=== PATIENT | female | born 1950 | race Caucasian/White ===

== ENCOUNTER → 2017-07-11 09:57 | Outpatient (CLI) | payer MEDICARE, SELFPAY ==
[2017-07-11 13:21] LABS: Urine Sodium 56 mmol/L (Not Establ.)
[2017-07-11 13:31] LABS: Anion Gap 8 (5-15); BUN 22 mg/dL (7-18); BUN/Creat Ratio 29.1 RATIO (10-20); Calcium,Total 9.1 mg/dL (8.5-10.1); Chloride 96 mmol/L (98-107); Creatinine, Serum 0.76 mg/dL (0.55-1.02); EST Glomerular Filtration Rate 81 mL/min (>60); Est Glom Filt Rate - Afr Amer 98 mL/min (>60); Glucose 96 mg/dL (74-106); Sodium Level 133 mmol/L (136-145)
[2017-07-11 13:40] LABS: Osmolality, Serum 282 mOsm/KG (280-301); Osmolality, Urine 401 mOsm/KG
== END ==
PROVIDERS: Family Provider Family Medicine; PCP Family Medicine; Visit Provider Internal Medicine Nephrology
DX: E87.1 Hypo-osmolality and hyponatremia (principal)
CPT/HCPCS: 36415; 80048; 83930; 83935; 84300

== ENCOUNTER → 2017-08-06 15:18 | Outpatient (CLI) | payer MEDICARE, OTHER, SELFPAY ==
--- NOTE | 2017-08-06 15:19 | RAD_ITS ---
STUDY: X-RAY - LUMBAR SPINE REASON FOR EXAM: Female, 67 years old. Low back pain TECHNIQUE: 5 view(s) of the lumbar spine were obtained with flexion and extension views. COMPARISON: None FINDINGS: Normal lumbar lordosis. There is no substantial scoliosis. There is a normal alignment of the vertebrae. Normal flexion and extension with no subluxations. Normal vertebral bodies and endplates. Normal disc space heights. There is no demonstrated fracture. The soft tissue structures are unremarkable. RAD/L/S Spine Min 4 Views IMPRESSION: Normal x-ray examination of the lumbar spine. Electronically Signed: Chandana Stroud MD at 20:26 EDT , Service support ,
== END ==
PROVIDERS: Family Provider Family Medicine; PCP Family Medicine; Visit Provider Orthopaedic Surgery
DX: M54.5 Low back pain (principal)
CPT/HCPCS: 72110

== ENCOUNTER 2017-09-11 08:03 | Inpatient (IN) | payer MEDICARE, OTHER, SELFPAY ==
[2017-08-28 10:20] VITALS: BP 114/73; PULSE 76; RESP 17; TEMP 36.3; O2SAT 97; BMI 26.7
--- NOTE | 2017-08-28 10:40 | SDCEKG_ITS ---
Test Reason : Blood Pressure : / mmHG Vent. Rate : 073 BPM Atrial Rate : 073 BPM P-R Int : 140 ms QRS Dur : 078 ms QT Int : 386 ms P-R-T Axes : 021 002 017 degrees QTc Int : 425 ms Normal sinus rhythm Normal ECG Confirmed by OMAYRA XIONG, EDD ([id number]), content editor SHON RUIZ ([id number] on 08/30/2017 3:06:12 PM Referred By: Kamran Pete Confirmed By:EDD CUTLER MD
[2017-08-28 11:10] LABS: Absolute Lymphocyte Count 1.57 X10^3/ul (0.83-4.51); Absolute Neutrophil Count 3.3 X10^3/uL (2.0-7.7); Basophil# 0.01 X10^3/uL; Basophil% 0.2 % (0-1); Eosinophil# 0.11 X10^3/uL; Hematocrit 36.4 % (37-47); Hemoglobin 11.9 g/dl (12.0-15.0); Lymphocyte # 1.57 X10^3/ul (4.0); Lymphocyte % 27.9 % (19-41); Mean Corp Hgb Conc 32.7 g/gl (32-36); Mean Corpuscular Hgb 30.1 pg (27.0-32.0); Mean Corpuscular Volume 91.9 fL (81-99); Mean Platelet Vol. 8.8 fl (6.2-12.0); Monocyte# 0.59 X10^3/uL; Monocyte% 10.5 % (0-10); Neutrophil # 3.33 X10^3/uL (2.7-7.7); Neutrophil % 59.2 % (47-70); POSITIVE COUNT NO; POSITIVE DIFFERENTIAL NO; POSITIVE MORPHOLOGY NO; Platelet Count 288 K/mm3 (150-450); RBC Distribution Width CV 12.7 % (11.6-14.6); RBC Distribution Width SD 42.7 fl (35.1-43.9); Red Blood Count 3.96 M/mm3 (4.2-5.4); White Blood Count 5.6 K/mm3 (4.4-11.0)
[2017-08-28 11:20] LABS: Anion Gap 4 (5-15); BUN 21 mg/dL (7-18); BUN/Creat Ratio 23.5 RATIO (10-20); Calcium,Total 9.2 mg/dL (8.5-10.1); Chloride 100 mmol/L (98-107); Creatinine, Serum 0.89 mg/dL (0.55-1.02); EST Glomerular Filtration Rate 67 mL/min (>60); Est Glom Filt Rate - Afr Amer 81 mL/min (>60); Estimated Creatinine Clearance 46.92 ml/min; Glucose 88 mg/dL (74-106); Potassium 3.7 mmol/L (3.5-5.1); Sodium Level 137 mmol/L (136-145)
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
[2017-09-11] VITALS (12 sets, daily range): BP systolic 92–147; BP diastolic 56–106; PULSE 65–87; RESP 14–20; TEMP 36.3–37.3; O2SAT 95–100; BMI 26.7
[2017-09-11] MEDS: oxyCODONE HCl Cr 10 MG Tablet PO (08:40)
[2017-09-11] MEDS: Acetaminophen 500 MG Tablet 1000 MG PO ×3 (08:40→21:36)
--- NOTE | 2017-09-11 08:53 | PCM.OPRPT ---
Report of Operation Date of Procedure: 09/11/17 Pre-Operative Diagnosis: Right hip primary osteoarthritis Post-Operative Diagnosis: Right hip primary osteoarthritis Surgery/Procedure Performed:: Right direct anterior total hip replacement Description of Surgical Findings:: Stable hip with equal leg lengths supervisory civil engineer: Marlene Snowden Type of Anesthesia:: Spinal Anesthesiologist: Juan F Marquez Special Medications: 2 g Ancef, 1 g TXA at incision, 1 g TXA closure, 10 mg Decadron, joint cocktail (5 mg Duramorph, 30 mL of 0.5% Ropivicaine, 1000 units of epinephrine, 30 mg of Toradol) Specimen's removed: bony cuts Estimated Blood Loss (mL): 150 Fluids Replaced: 1100 ml Description of Procedure: Components used: 1. Accolade 2 Hinton femoral stem size 4 127? 2. Hinton trident acetabular shell size 50 mm 3. Michelle X3 polyethylene D 4. Michelle Biolox delta 36mm, -5mm femoral head Brief history operative indications: 67 yo f who failed conservative measures for their hip osteoarthritis. X-rays were consistent with osteoarthritis including joint space narrowing, osteophyte formation and subchondral cysts. Total hip replacement was discussed with the patient with risks and benefits including but not limited to blood loss, DVTs, PEs, neurovascular damage, dislocation, general risks of anesthesia including loss of life. Patient demonstrated an understanding medical clearance is obtained the patient was consented for surgery. Procedure: On the date of procedure the patient's R hip was marked in the preoperative area. Patient was then taken back to the operating room where anesthesia assumed control of the C-spine and airway and administered anesthetic. Patient was transferred to the operating table and placed in the supine position. The hips were placed at the break of the bed and a sacral bump was placed. The R lower extremity was then prepped out in a sterile fashion using chlorhexidine while the surgeon scrubbed. The PA was vital in the positioning of the patient. Upon reentering the room the R lower extremity was draped in the standard orthopedic fashion and the incision was marked. A timeout was called and everyone agreed upon the side, the site, the procedure be performed, antibody given, and patient's identity. At this time incision was made through skin, subcutaneous tissue, and fat down to fascia. The fascia was then incised and the TFL was retracted laterally. A retractor was placed on the lateral border of the femoral neck. Attention was directed to the inferior portion of the approach and all crossing vessels were identified and appropriately coagulated. A retractor was then placed on the medial portion of the femoral neck. The anterior capsule was then cleared of all soft tissue and then H shaped capsulotomy was made. The retractors were then placed inside the capsule. The femoral neck was identified and a cleanup cut was made. At this time a power corkscrew was used to remove the femoral head. Attention was then turned toward the acetabulum where the soft tissues were appropriately retracted and the acetabulum was sequentially reamed to 49 mm. A 50 mm cup was then selected and impacted into place. Acetabular liner was impacted into place and locking mechanism was verified. The position of the acetabular cup was then verified under live fluoroscopy. Attention was then turned to the femur. Soft tissue releases on the medial and lateral femoral neck were appropriately done, the leg was externally rotated and lateralized. A Sumner retractor was placed medially and proximally to the greater trochanter this allowed appropriate visualization and exposure of the femoral canal. Rongeour was then used to remove excess lateral bone. A canal finder and entry broach were used to open the proximal canal. Once we verified we were down the femoral canal we subsequently broached up to a size 4 femur. The appropriate neck was placed in the previously selected head was trialed with a -5 mm neck. Traction was pulled and the hip was reduced with internal rotation. Once it was appropriately reduced and stability was checked. There was minimal shuck, equal leg lengths and appropriate stability with hyperextension and external rotation as well as with 90? flexion and internal rotation. Fluoroscopy was then also used to verify the position of the components and leg lengths using the contralateral side for comparison. The trial components were then dislocated the proximal femur was again exposed and the components were removed from the wound. The final components were verified and opened. The wound was copiously irrigated out with normal saline. The acetabulum was checked for any residual debris. The final components were placed and impacted. Traction and internal rotation were again used to reduce the hip. After adequate reduction the hip remained stable with appropriate leg lengths. The final components were once again checked with live fluoroscopy and were found to be satisfactory. The wound was then copiously irrigated with normal saline once more, and hemostasis was obtained. Closure was then done using #1 Vicryl runner to close the fascia. A 2-0 vicryl interuppted sutures were used to close the subcutaneous skin. A 3-0 Monocryl and Steri-Strips were used for final skin closure. A Silverlon dressing was placed. Patient was awakened by anesthesia and transferred to the [facility]. Patient was then transferred to the PACU for recovery. Postoperative plan: Patient will get 24 hours postop antibiotics. Patient will get in-house physical therapy and will be weight-bear as tolerated. Patient will follow up in office in 2 weeks for a wound check and x-rays. Grafts/Implants Used: Michelle Accolade 2 - Complications none - Admit VTE Documentation VTE Present on Admission: No VTE Mechan Device Prophylaxis: SCD's, Thigh High CHATA Hose VTE Pharm Prophylaxis ordered?: Yes
[2017-09-11] MEDS: Lactated Ringers 1,000 ML 999 ML IV (09:01)
[2017-09-11] MEDS: Cefazolin 2 GM in 0.9% Normal Saline 100 ML IV (09:36)
--- NOTE | 2017-09-11 10:15 | RAD_ITS ---
STUDY: X-RAY - PELVIS AND RIGHT HIP REASON FOR EXAM: Female, 67 years old. Hip replacement TECHNIQUE: 3 C-arm views. 11.2 seconds of fluoroscopy time. COMPARISON: None. FINDINGS: These limited field of view images show grossly satisfactory appearance of right hip arthroplasty. Correlate with procedure note. Electronically Signed: Chandana Stroud MD at 12:42 EDT , Service support , RAD/Hip 1 view with Pelvis
[2017-09-11] MEDS: Scopolamine 1mg/72hr Patch 1 PATCH TD (11:18)
[2017-09-11] MEDS: Lactated Ringers 1,000 ML 125 ML IV ×2 (11:21→16:50)
--- NOTE | 2017-09-11 11:23 | RAD_ITS ---
STUDY: X-RAY - PELVIS AND RIGHT HIP REASON FOR EXAM: Female, 67 years old. Postop hip replacement. TECHNIQUE: Radiological exam, hip, unilateral, with pelvis when performed; 2 or 3 views. COMPARISON: None. FINDINGS: There is a non-specific bowel gas pattern. Normal visualized soft tissue structures. Normal bilateral iliac wings, sacroiliac joints and visualized sacrum. Normal bilateral superior and inferior pubic rami. Normal pubic symphysis. Normal bilateral ischial tuberosities. There is a satisfactory appearance of a right total hip arthroplasty. No evidence for acute complication. RAD/Hip Min 2 Views (Portable) IMPRESSION: There is a satisfactory appearance of a right total hip arthroplasty. No evidence for acute complication. Electronically Signed: Chandana Stroud MD at 11:57 EDT , Service support ,
[2017-09-11] MEDS: Famotidine 20 MG Tablet PO (15:19)
[2017-09-11] MEDS: DULoxetine Hcl 20 MG Capsule PO (15:19)
[2017-09-11] MEDS: Folic Acid 1 MG Tablet PO (16:50)
[2017-09-11] MEDS: Cefazolin 1 GM/50 ML BAG IV (16:50)
[2017-09-11] MEDS: Ferrous Sulfate 325 MG Tablet PO (16:50)
[2017-09-11] MEDS: Aspirin 325 MG Tablet PO (16:50)
[2017-09-11] MEDS: oxyCODONE 5 MG Tablet PO ×2 (18:31→22:57)
[2017-09-11] MEDS: Ketorolac 15 MG/ML Vial IV (20:21)
[2017-09-11] MEDS: Propranolol 10 MG Tablet 20 MG PO (21:37)
[2017-09-11] MEDS: Zolpidem Tartrate 5 MG Tablet PO (21:37)
[2017-09-12] MEDS: Cefazolin 1 GM/50 ML BAG IV (01:53)
[2017-09-12 03:00] VITALS: BP 115/71; PULSE 92; RESP 16; TEMP 37.9; O2SAT 95
--- NOTE | 2017-09-12 04:59 | NURSING ---
Sats dropped to 88% while on R/A, 02 2l n/c placed, and sats maik up to 94%. Pt educated on AKIL, and recommended that she speak to her doctor a possibly getting a sleep study.
[2017-09-12 05:57] LABS: Hematocrit 28.9 % (37-47); Hemoglobin 9.6 g/dl (12.0-15.0); Mean Corp Hgb Conc 33.2 g/gl (32-36); Mean Corpuscular Hgb 30.1 pg (27.0-32.0); Mean Corpuscular Volume 90.6 fL (81-99); Mean Platelet Vol. 9.3 fl (6.2-12.0); Platelet Count 199 K/mm3 (150-450); RBC Distribution Width SD 42.7 fl (35.1-43.9); Red Blood Count 3.19 M/mm3 (4.2-5.4); White Blood Count 7.3 K/mm3 (4.4-11.0)
[2017-09-12 06:09] LABS: Scan Indicated on CBC? Y/N NO
[2017-09-12 06:26] LABS: Anion Gap 7 (5-15); BUN 9 mg/dL (7-18); BUN/Creat Ratio 12.9 RATIO (10-20); Calcium,Total 7.8 mg/dL (8.5-10.1); Chloride 106 mmol/L (98-107); EST Glomerular Filtration Rate 89 mL/min (>60); Est Glom Filt Rate - Afr Amer 108 mL/min (>60); Estimated Creatinine Clearance 41.76 ml/min; Glucose 123 mg/dL (74-106); Potassium 3.4 mmol/L (3.5-5.1); Sodium Level 141 mmol/L (136-145)
[2017-09-12] MEDS: Acetaminophen 500 MG Tablet 1000 MG PO (07:05)
[2017-09-12] MEDS: oxyCODONE 5 MG Tablet PO ×2 (07:38→11:12)
[2017-09-12] MEDS: Folic Acid 1 MG Tablet PO (07:39)
[2017-09-12] MEDS: Ferrous Sulfate 325 MG Tablet PO (07:39)
[2017-09-12] MEDS: Aspirin 325 MG Tablet PO (07:39)
[2017-09-12] MEDS: Pantoprazole Sodium 40 MG Tablet PO (07:40)
[2017-09-12] MEDS: Propranolol 10 MG Tablet 30 MG PO (07:40)
[2017-09-12] MEDS: Famotidine 20 MG Tablet PO (07:40)
[2017-09-12] MEDS: Multivitamins,Therapeutic Tablet 1 TABLET PO (07:40)
[2017-09-12] MEDS: Triamterene 37.5MG/Hctz 25MG Capsule 1 CAP PO (07:41)
[2017-09-12] MEDS: DULoxetine Hcl 20 MG Capsule PO (07:41)
[2017-09-12 09:00] VITALS: BP 93/63; PULSE 70; RESP 18; TEMP 36.8; O2SAT 95
--- NOTE | 2017-09-12 09:17 | PCM.PN.ORT ---
Subjective: The patient was sitting in bedside chair upon examination. Patient denies any chest pain, shortness of breath, dizziness, lightheadedness, nausea or vomiting, or calf pain. Patient did have nausea/vomiting yesterday after surgery but this is resolved. Pain is controlled on medications. No adverse overnight events. Plan is for patient to go home today if tolerates physical therapy and pain is well controlled. Objective: Vital signs stable and afebrile. Patient is able to plantarflex and dorsiflex actively. Sensation is intact to light touch to saphenous, sural, superficial and deep peroneal, and tibial distribution. Dressing is clean dry and intact. Negative Homans bilaterally, negative signs and symptoms of DVT. - Physical Exam General: Alert, Oriented x3, Cooperative, No apparent distress Vital Signs Temp Pulse Resp BP Pulse Ox 100.2 F H 92 16 115/71 95 09/12/17 03:00 09/12/17 03:00 09/12/17 03:00 09/12/17 03:00 09/12/17 03:00 Oxygen Delivery Method Room Air Weight: 65.2 kg Body Mass Index (BMI) 26.7 Intake and Output for Last 24 Hours 09/10/17 09/11/17 09/12/17 23:59 23:59 23:59 Intake Total 2666 / 2666 1477 / 1477 Balance 2666 / 2666 1477 / 1477 Laboratory Tests Past 24 Hrs 09/12/17 09/12/17 05:12 05:12 WBC 7.3 RBC 3.19 L Hgb 9.6 L Hct 28.9 L MCV 90.6 MCH 30.1 MCHC 33.2 RDW 13.0 RDW Differential 42.7 Plt Count 199 MPV 9.3 Sodium 141 Potassium 3.4 L Chloride 106 Carbon Dioxide 28.0 Anion Gap 7 BUN 9 Creatinine 0.70 Estim Creat Clear Calc 41.76 Est GFR (MDRD) Af Amer 108 Est GFR (MDRD) Non-Af 89 BUN/Creatinine Ratio 12.9 Glucose 123 H Calcium 7.8 L Medical Necessity - Tobacco Use Smoking Status: Never smoker Assessment/Plan 1. S/P right direct anterior total hip arthroplasty POD #1 2. Continue Pain Medications: Tylenol and oxycodone 3. DVT Prophylaxis: Aspirin 325 mg twice daily 4. PT/OT: Weightbearing as tolerated 5. H & H: 9.6/28.9, asymptomatic 6. Encouraged Incentive Spirometry 7. Disposition: Plan will be for possible discharge home today if pain continues to be well controlled and patient tolerates physical therapy. Prescriptions will be E scribed to [facility]. Patient will follow-up per postop instructions.
--- NOTE | 2017-09-12 09:27 | PCM.DC.THR ---
Discharge Diet: No Restrictions Discharge Activity: May Not Drive - while taking narcotic pain medications. May shower in (days): 1 - only if incision is dry and without drainage. Do NOT soak/submerge in tub/pool/pickett/stream/hot tub. Ice area for (Minutes): 20 - Every 1-2 hours while awake Weight Bearing Status: Weight bearing as tolerated Elevate: Operative Extremity Additional Activity Instructions:: Wear elastic stockings for 2 weeks. DO NOT use alcohol with narcotic pain medication. DO NOT make important decisions while taking narcotic medication. If you have problems with taking your medication (rash, itching, nausea, etc.) call the office at once. Call your doctor if your incision/area has: Increased Pain/ Swelling, Increased Redness, Foul Smelling Discharge Call your doctor if you observe: Fever of 101 or Higher Remove Dressing in (days):: 4 - Remove dressing on September 16, 2017 Additional Instructions: Follow [facility] postop instructions Do not take meloxicam while taking aspirin for DVT prophylaxis Allergies/Adverse Reactions: Allergies Sulfa (Sulfonamide Antibiotics) Allergy (Verified 08/28/17 10:10) Rash Medications to take at Discharge duloxetine 20 mg capsule,delayed release 20 mg PO DAILY 08/07/17 propranolol 20 mg tablet 20 mg PO QHS 08/07/17 triamterene 37.5 mg-hydrochlorothiazide 25 mg tablet 1 tab PO QDAY 08/07/17 zolpidem 10 mg tablet 10 mg PO QHS 08/07/17 Cholecalciferol (Vitamin D3) [Vitamin D3] 1,000 unit PO BID 08/28/17 L.acidoph,Paracasei, B.lactis [Probiotic] 1 each PO DAILY 08/28/17 Multivitamin [Multiple Vitamins] 1 each PO DAILY 08/28/17 Omeprazole 40 mg PO DAILY 08/28/17 Propranolol HCl [Inderal (Beta Nolvia)] 30 mg PO DAILY 08/28/17 Acetaminophen [Tylenol] 1,000 mg PO Q8 #90 tab 09/12/17 Aspirin 325 mg PO BIDCM #30 tab 09/12/17 Ferrous Sulfate 325 mg PO BIDCM tablet 09/12/17 Folic Acid 1 mg PO BIDCM tablet 09/12/17 Oxycodone [Oxyir] 5 - 10 mg PO Q4H PRN PRN 7 Days #80 tablet 09/12/17 Senna/Docusate Sodium [Senokot-S] 2 tab PO BID #20 tab 09/12/17 The following prescriptions were given: Oxycodone [Oxyir] 5 - 10 mg PO Q4H PRN PRN 7 Days #80 tablet PRN Reason: Mod-Severe Pain (-02/05) Acetaminophen [Tylenol] 1,000 mg PO Q8 #90 tab Aspirin 325 mg PO BIDCM #30 tab Senna/Docusate Sodium [Senokot-S] 2 tab PO BID #20 tab Primary Care Physician: Joni Romo MD [Primary Care Provider] - Please follow up with your Primary Care Physician in: 1-2 weeks Please Follow Up With: Physical therapy at [facility] When: 09/16/17 @ 11:00 am Please Follow Up With: Travis Bennett PA-C When: 09/25/17 @ 11:00 am
== END 2017-09-12 14:23 | disposition home or self-care (01) | DRG 470 ==
LOC: ACINP 08:05 → MS3 09:29
PROVIDERS: Admitting Provider Specialist; Family Provider Family Medicine; PCP Family Medicine; Visit Provider Specialist
PROC: 0SR904Z Replacement of Right Hip Joint with Ceramic on Polyethylene Synthetic Substitute, Open Approach (ICD-10-PCS; CPT 27284; principal; 2017-09-11 09:50)
DX: M16.11 Unilateral primary osteoarthritis, right hip (principal); I10 Essential (primary) hypertension; K21.9 Gastro-esophageal reflux disease without esophagitis; Z79.899 Other long term (current) drug therapy; F32.9 Major depressive disorder, single episode, unspecified
CPT/HCPCS: 73501; 73502; 76000; 80048; 85025; 85027; 87077; 87081; 97110; 97162; 97165; 97530; 97535; 99251; C1776; J7120; G0463

== ENCOUNTER → 2018-11-18 | Outpatient (CLI) | payer MEDICARE, OTHER, SELFPAY ==
[2018-11-18 10:25] VITALS: BMI 26.7
--- NOTE | 2018-11-18 10:31 | RAD_ITS ---
STUDY: X-RAY - LUMBAR SPINE REASON FOR EXAM: Female, 68 years old. Low back pain TECHNIQUE: 4 view(s) of the lumbar spine were obtained. COMPARISON: 08/06/2017 FINDINGS: Normal lumbar lordosis. There is no substantial scoliosis. There is a normal alignment of the vertebrae from L1 to L5. There is grade 1 spondylolisthesis at L5/S1 which has become more conspicuous since the previous study. There is multilevel endplate spondylosis of the lumbar vertebrae. There is multi-level degenerative disc disease with multi-level disc space narrowing. There is no demonstrated fracture. The soft tissue structures are unremarkable. RAD/L/S Spine Min 4 Views IMPRESSION: Multilevel degenerative changes with grade 1 spondylolisthesis at L5/S1 more conspicuous on current examination than the previous study Electronically Signed: Colten Anderson MD at 11:18 EDT , Service support ,
== END | disposition home or self-care (01) ==
LOC: HPRAD 10:30
PROVIDERS: Family Provider Family Medicine; PCP Family Medicine; Referring Provider Orthopaedic Surgery; Visit Provider Orthopaedic Surgery
DX: M25.551 Pain in right hip (principal); M54.9 Dorsalgia, unspecified
CPT/HCPCS: 72110

== ENCOUNTER → 2018-11-24 | Outpatient (CLI) | payer MEDICARE, OTHER, SELFPAY ==
[2018-11-18 10:25] VITALS: BMI 26.7
--- NOTE | 2018-11-24 07:45 | BI_ITS ---
MAMMOGRAPHY - BILATERAL SCREENING REASON FOR EXAM: Female, 68 years old. Routine annual screening examination. PERTINENT HISTORY: Non-contributory. TECHNIQUE: Digital bilateral breast pritesh (3D mammographic acquisition) in the CC and MLO projections. 2-D mediolateral oblique (MLO) and craniocaudad (CC) views of both breasts were obtained. CAD: Full Field Digital Mammography with Computer Added Detection was performed. COMPARISON: Comparison is made with prior examination dated July 04, 2015 and March 04, 2014. FINDINGS: Breast Composition: The breasts are almost entirely fatty. There are no dominant masses or suspicious calcifications. Stable 3 mm well-defined nodule in the upper outer aspect of the left breast. This is in keeping with a small lymph node. No other significant abnormalities are identified. There has been no significant change since the prior study. BI/SCREEN MAMM (CAD) W/PRITESH BILAT IMPRESSION: Stable bilateral screening mammogram. Yearly follow-up mammogram recommended. (A) ASSESSMENT CATEGORY: BIRADS Category 2: Benign. A letter regarding these results will be sent to the patient by the facility within 30 days. Approximately 10% of breast cancers are not detected by mammography. A normal mammogram should not delay biopsy of a clinically suspicious abnormality. [id number] Electronically Signed: Emory Busch, at 9:38 EDT , Service support ,
== END | disposition home or self-care (01) ==
LOC: OPBI 07:42
PROVIDERS: Family Provider Family Medicine; PCP Family Medicine; Referring Provider Obstetrics & Gynecology; Visit Provider Obstetrics & Gynecology
DX: Z12.31 Encounter for screening mammogram for malignant neoplasm of breast (principal)
CPT/HCPCS: 77063; 77067

== ENCOUNTER 2019-11-25 15:28 | Emergency (ER) | payer OTHER, MEDICARE, SELFPAY ==
[2019-05-12 09:39] VITALS: BMI 26.7
[2019-11-25 15:29] VITALS: BP 119/77; PULSE 79; RESP 18; TEMP 37.1; O2SAT 97; BMI 27.4
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
[2019-11-25] MEDS: HYDROcodone Bitartrate/Apap 5/325 Tablet PO (16:01)
== END 2019-11-25 17:17 | disposition home or self-care (01) ==
PROVIDERS: Emergency Provider Emergency Medicine; PCP Family Medicine
DX: S39.012A Strain of muscle, fascia and tendon of lower back, initial encounter (principal); V43.62XA Car passenger injured in collision with other type car in traffic accident, initial encounter; Y93.9 Activity, unspecified; Y92.9 Unspecified place or not applicable; I10 Essential (primary) hypertension; K21.9 Gastro-esophageal reflux disease without esophagitis; F32.9 Major depressive disorder, single episode, unspecified; F41.9 Anxiety disorder, unspecified; G89.29 Other chronic pain; Z79.82 Long term (current) use of aspirin; Z79.899 Other long term (current) drug therapy
CPT/HCPCS: 72100; 99284

== ENCOUNTER → 2020-03-15 10:45 | Outpatient (CLI) | payer MEDICARE, OTHER, SELFPAY ==
--- NOTE | 2020-03-15 10:53 | RAD_ITS ---
STUDY: X-RAY - LUMBAR SPINE REASON FOR EXAM: Female, 69 years old. Back pain. TECHNIQUE: 3 view(s) of the lumbar spine were obtained. COMPARISON: Lumbar spine, 11/25/2019. FINDINGS: Normal lumbar lordosis. There is no substantial scoliosis. There is mild anterolisthesis of L5 on S1. The alignment is otherwise preserved. Normal vertebral bodies and endplates. Normal disc space heights. There is no evidence of acute fracture or loss of vertebral axial height. Cholecystectomy clips are seen in the right upper quadrant. There is a right hip replacement. RAD/Lumbar Spine 2 or 3 Views IMPRESSION: No acute lumbar spine abnormality or major interval change. Electronically Signed: Jacky Kaur DO at 20:15 EST Tel [phone], Service support ,
== END ==
PROVIDERS: PCP Family Medicine; Visit Provider Anesthesiology Pain Medicine
DX: M54.9 Dorsalgia, unspecified (principal)
CPT/HCPCS: 72100

== ENCOUNTER → 2020-10-20 10:45 | Outpatient (CLI) | payer OTHER, MEDICARE, SELFPAY ==
--- NOTE | 2020-10-20 10:49 | RAD_ITS ---
STUDY: X-RAY - CERVICAL SPINE REASON FOR EXAM: Female, 70 years old. Neck pain. TECHNIQUE: 3 view(s) of the cervical spine were obtained. COMPARISON: None FINDINGS: Generalized osteopenia. Normal anterior atlantoaxial articulation. Normal odontoid process. Normal cervical lordosis. Normal vertebral bodies and endplates. Diffuse uncovertebral and facet sclerosis. Intervertebral disc space narrowing at C5-6, C6-7 and C7-T1 with osteophyte formation most marked at C5-6. The soft tissue structures are unremarkable. RAD/Cerv Spine 2 or 3 Views IMPRESSION: Osteopenia with moderate lower cervical spondylosis as described. Electronically Signed: Senthil Pathak MD at 13:35 EDT , Service support ,
== END ==
PROVIDERS: PCP Family Medicine; Referring Provider Anesthesiology Pain Medicine; Visit Provider Anesthesiology Pain Medicine
DX: M54.2 Cervicalgia (principal)
CPT/HCPCS: 72040

== ENCOUNTER → 2021-09-19 | Outpatient (CLI) | payer MEDICARE, OTHER, SELFPAY ==
--- NOTE | 2021-09-19 14:45 | BI_ITS ---
MAMMOGRAPHY - BILATERAL SCREENING REASON FOR EXAM: Female, 71 years old. Routine annual screening examination. PERTINENT HISTORY: Non-contributory. TECHNIQUE: Digital bilateral breast pritesh (3D mammographic acquisition) in the CC and MLO projections. 2-D mediolateral oblique (MLO) and craniocaudad (CC) views of both breasts were obtained. CAD: Full Field Digital Mammography with Computer Added Detection was performed. COMPARISON: Screening mammogram from 11/24/2018, 07/04/2015, 03/04/2014, 02/08/2011. FINDINGS: Breast Composition: The breasts are almost entirely fatty. There are no dominant masses or suspicious calcifications. Circumscribed 3 mm nodule in the upper outer quadrant left breast is stable since 2010 and is most consistent with a benign small lymph node. No other significant abnormalities are identified. There has been no significant change since the prior study. BI/SCRN MAMM (CAD)W/PRITESH BILAT IMPRESSION: Stable bilateral screening mammogram. Yearly follow-up mammogram recommended. (A) ASSESSMENT CATEGORY: BIRADS Category 2: Benign. A letter regarding these results will be sent to the patient by the facility within 30 days. Approximately 10% of breast cancers are not detected by mammography. A normal mammogram should not delay biopsy of a clinically suspicious abnormality. [id number] Electronically Signed: Yonis Gardner, at 16:27 EDT ,
--- NOTE | 2021-09-19 14:48 | BD_ITS ---
STUDY: DUAL ENERGY X-RAY ABSORPTIOMETRY / DXA REASON FOR EXAM: Female, 71 years old. M85.89. Patient is postmenopausal. TECHNIQUE: Bone Mineral Density (BMD) measurements of lumbar spine and left hip were obtained. COMPARISON: Comparison is made with prior study dated 02/08/2011. FINDINGS: Lumbar Spine (L1-L4): g/cm2 (0.917) / T-score (-1.2) / Z-score (0.9) Findings are suggestive of osteopenia with a low fracture risk. Left Femur Total: g/cm2 (0.881) / T-score (-0.5) / Z-score (1.0) Left Femoral Neck: g/cm2 (0.661) / T-score (-1.7) / Z-score (0.1) The T-Scores on the most recent prior examination were: Lumbar Spine (L1-L4): There has been worsening of bone density since the previous examination. Left Femur Total: which represents a worsening of 7.6%. BD/Dexa Bone Density Study IMPRESSION: The patient is considered osteopenic as outlined below according to World Bjorn Organization (WHO) criteria with a moderate fracture risk. There has been worsening of bone density since the previous examination. Reference Information: The T-score is the number of standard deviations above or below the standard which is normal for young adults at their peak bone mineral density. The World Health Organization (WHO) interprets the T-scores as follows: Above -1 Normal bone density Between -1 and -2.5 Osteopenia Equal to / or below -2.5 Osteoporosis As a practical clinical guideline, osteopenia may be graded as follows: Mild -1 through -1.5 Moderate -1.6 through -2.0 Severe -2.1 through -2.4 The Z-score is the number of standard deviations above or below age-matched controls. A Z-score of less than -1.5 would be considered abnormal. References: 1. NIH Osteoporosis and Related Bone Diseases www osteo.org 2. International Society for Clinical Densitometry www iscd.org 3. National Osteoporosis Foundation www nof.org Electronically Signed: Emory Busch MD at 10:24 EDT ,
== END | disposition home or self-care (01) ==
LOC: OPBI 14:41
PROVIDERS: PCP Family Medicine; Visit Provider Student in an Organized Health Care Education/Training Program
DX: Z12.31 Encounter for screening mammogram for malignant neoplasm of breast (principal); M85.89 Other specified disorders of bone density and structure, multiple sites
CPT/HCPCS: 77063; 77067; 77080

== ENCOUNTER → 2024-02-19 | Outpatient (CLI) | payer MEDICARE, OTHER, SELFPAY ==
--- NOTE | 2024-02-19 09:56 | BI_ITS ---
MAMMOGRAPHY - BILATERAL SCREENING REASON FOR EXAM: Female, 73 years old. Routine annual screening examination. PERTINENT HISTORY: Non-contributory. TECHNIQUE: Digital bilateral breast pritesh (3D mammographic acquisition) in the CC and MLO projections. 2-D mediolateral oblique (MLO) and craniocaudad (CC) views of both breasts were obtained. CAD: Full Field Digital Mammography with Computer Added Detection was performed. COMPARISON: Comparison is made with prior study September 19, 2021 and November 24, 2018. FINDINGS: Breast Composition: The breasts are almost entirely fatty. There are no dominant masses or suspicious calcifications. Stable 3 mm well-defined nodule in the upper-outer quadrant left breast. This is suggestive of a small intramammary lymph node. No other significant abnormalities are identified. There has been no significant change since the prior study. BI/SCRN MAMM (CAD)W/PRITESH BILAT IMPRESSION: Stable bilateral screening mammogram. Yearly follow-up mammogram recommended. (A) ASSESSMENT CATEGORY: BIR ADS Category 2: Benign. A letter regarding these results will be sent to the patient by the facility within 30 days. Approximately 10% of breast cancers are not detected by mammography. A normal mammogram should not delay biopsy of a clinically suspicious abnormality. [id number] Electronically Signed: Emory Busch MD at 11:59 EDT ,
== END | disposition home or self-care (01) ==
LOC: OPBI 09:53
PROVIDERS: PCP Family Medicine; Referring Provider Family Medicine; Visit Provider Family Medicine
DX: Z12.31 Encounter for screening mammogram for malignant neoplasm of breast (principal)
CPT/HCPCS: 77063; 77067